=== PATIENT | female | born 2000 | race Caucasian/White ===

== ENCOUNTER 2018-03-19 07:48 | Inpatient (IN) | payer OTHER ==
[~2018-03-19] VITALS: Ht 152.4 cm; Wt 59.4 kg
[2018-03-19 09:19] LABS: microscopic required? YES; urine erythrocyte 1+ (NEGATIVE)
[2018-03-19 09:25] LABS: PLATELET COUNT 206 x10^3mcL (130-400); RED CELL DISTRIBUTION WIDTH 13.8 % (11.5-14.5)
[2018-03-19 09:44] LABS: CALCIUM 8.6 mg/dL (8.5-10.1); CARBON DIOXIDE 21.8 mmol/L (21-32); CHLORIDE SERUM 102 mmol/L (98-107); GFR1 > 60 mL/min; GLUCOSE SERUM 112 mg/dL (74-106); POTASSIUM SERUM 3.1 mmol/L (3.5-5.1); SODIUM SERUM 136 mmol/L (136-145)
[2018-03-19 09:55] LABS: ALBUMIN 3.8 g/dL (3.4-5.0); ALKALINE PHOSPHATASE 60 U/L (46-116); ALT/SGPT 17 U/L (14-59); AST/SGOT 14 U/L (15-37); BILIRUBIN TOTAL 2.26 mg/dL (0.20-1.00); TOTAL PROTEIN, SERUM 7.2 g/dL (6.4-8.2)
[2018-03-19 10:00] LABS: CK-MB < 0.5 ng/mL (0-3.6); CREATINE KINASE 150 U/L (26-192)
[2018-03-19 10:07] LABS: BAND NEUTROPHIL 4 % (0-10); MONOCYTE 2 % (0-7); SEGMENTED NEUTROPHILS 93 % (37-75)
[2018-03-19 10:12] LABS: PLATELET MORPHOLOGY PLATELETS DECREASED; rbc morphology (normal/abnorm) ABNORMAL (NORMAL)
[2018-03-19] MEDS ORDERED: LO LOESTRIN FE1 TAB (13:42)
[2018-03-19 15:12] LABS: MAGNESIUM 1.5 mg/dL (1.8-2.4); PHOSPHOROUS 1.7 mg/dL (2.5-4.9)
[2018-03-19 15:24] LABS: FREE T4 1.2 ng/dL (0.76-1.46); FREE THYROXINE INDEX 2.9 ug/dL (1.4-4.5); T4(THYROXINE) 10.3 ug/dL (4.7-13.3)
[2018-03-19 15:26] VITALS: BP 99/64
[2018-03-19 15:29] VITALS: Ht 152.4 cm; Wt 59.4 kg
[2018-03-19 17:50] VITALS: BP 93/55
[2018-03-19 21:00] VITALS: BP 91/52
[2018-03-20 05:36] VITALS: BP 90/52
[2018-03-20 07:05] LABS: PLATELET COUNT 154 x10^3mcL (130-400)
[2018-03-20 07:10] LABS: CALCIUM 7.9 mg/dL (8.5-10.1); CARBON DIOXIDE 23.6 mmol/L (21-32); CHLORIDE SERUM 111 mmol/L (98-107); CREATININE SERUM 0.7 mg/dL (0.6-1.0); GFR1 > 60 mL/min; GLUCOSE SERUM 81 mg/dL (74-106); MAGNESIUM 2.2 mg/dL (1.8-2.4); PHOSPHOROUS 1.8 mg/dL (2.5-4.9); POTASSIUM SERUM 4.2 mmol/L (3.5-5.1); SODIUM SERUM 140 mmol/L (136-145)
[2018-03-20 07:58] LABS: BASOPHIL % 0 % (0-2); RED CELL DISTRIBUTION WIDTH 14.8 % (11.5-14.5)
[2018-03-20 09:40] VITALS: BP 101/47
[2018-03-20 09:41] LABS: TOTAL IRON BINDING CAPACITY 284 ug/dL (250-450)
[2018-03-20 09:44] LABS: IRON 8 ug/dL (50-170)
[2018-03-20 13:53] VITALS: BP 100/56
[2018-03-20 17:45] VITALS: BP 94/55
[2018-03-20 18:02] LABS: BILIRUBIN DIRECT 0.23 mg/dL (0.0-0.2); BILIRUBIN TOTAL 1.32 mg/dL (0.20-1.00)
[2018-03-20 18:04] LABS: ALBUMIN 2.5 g/dL (3.4-5.0); TOTAL PROTEIN, SERUM 5.1 g/dL (6.4-8.2)
[2018-03-20 20:58] VITALS: BP 92/54
[2018-03-21 06:11] VITALS: BP 95/54
[2018-03-21 06:43] LABS: BASOPHIL % 0.1 % (0-2); PLATELET COUNT 138 x10^3mcL (130-400)
[2018-03-21 06:47] LABS: RED CELL DISTRIBUTION WIDTH 14.9 % (11.5-14.5)
[2018-03-21 06:58] LABS: CALCIUM 7.9 mg/dL (8.5-10.1); CHLORIDE SERUM 112 mmol/L (98-107); CREATININE SERUM 0.7 mg/dL (0.6-1.0); GFR1 > 60 mL/min; GLUCOSE SERUM 91 mg/dL (74-106); PHOSPHOROUS 2.8 mg/dL (2.5-4.9); POTASSIUM SERUM 4.6 mmol/L (3.5-5.1); SODIUM SERUM 143 mmol/L (136-145)
[2018-03-21 13:31] VITALS: BP 95/54
[2018-03-21] MEDS ORDERED: KEF500 PO (13:32)
[2018-03-21] MEDS ORDERED: BACDS PO (13:32)
[2018-03-21] MEDS ORDERED: LAC PO (13:33)
[2018-03-21 14:08] VITALS: BP 110/74
== END 2018-03-21 14:11 | disposition home or self-care (01) | DRG 871 ==
LOC: ED 07:48 → DU 13:56
PROVIDERS: Emergency Medicine; Internal Medicine
DX: A41.9 Sepsis, unspecified organism (principal); E43 Unspecified severe protein-calorie malnutrition; L03.311 Cellulitis of abdominal wall; N39.0 Urinary tract infection, site not specified; R65.20 Severe sepsis without septic shock; L81.8 Other specified disorders of pigmentation; E87.6 Hypokalemia; E83.42 Hypomagnesemia; E83.39 Other disorders of phosphorus metabolism; E80.6 Other disorders of bilirubin metabolism
CPT/HCPCS: 83880; 84439; J0171; J0295; J0696; J1885; J3475; J3480; J7030; Q0092; Q0163